=== PATIENT | male | born 1980 | race American Indian/Alaskan Native ===

== ENCOUNTER 2018-06-23 17:25 | Emergency (ER) | payer SELFPAY ==
[2018-06-23] MEDS ORDERED: TYLENOL ONE (17:54)
[2018-06-23] MEDS ORDERED: NACL 0.9% 500 ML 500 ML IV ONE (19:00)
[2018-06-23] MEDS ORDERED: TYLENOL PO ONE (19:15)
[2018-06-23 19:38] LABS: Basophils # (Auto) 0.1 K/mm3 (0.0-0.1); Basophils % (Auto) 0.5 % (0.0-1.8); Eosinophils % (Auto) 0.1 % (0.0-4.3); Hematocrit 37.5 % (35.5-45.6); Hemoglobin 12.7 gm/dl (11.8-15.2); Lymphocytes # (Auto) 1.5 K/mm3 (1.2-5.4); Lymphocytes % (Auto) 8.5 % (13.4-35.0); Mean Corpuscular HGB Conc 34 % (32-34); Mean Corpuscular Hemoglobin 29 pg (28-32); Mean Corpuscular Volume 85 fl (84-94); Monocytes # (Auto) 1.6 K/mm3 (0.0-0.8); Monocytes % (Auto) 8.7 % (0.0-7.3); Platelet Count 263 K/mm3 (140-440); Red Blood Count 4.42 M/mm3 (3.65-5.03)
[2018-06-23 19:48] LABS: INR 1.1 (0.87-1.13)
[2018-06-23 19:53] LABS: Alanine Aminotransferase 18 units/L (7-56); Albumin 3.9 g/dL (3.9-5); BUN/Creatinine Ratio 13; Blood Urea Nitrogen 14 mg/dL (9-20); Calcium 9.6 mg/dL (8.4-10.2); Hemolysis Index 5
[2018-06-23] MEDS ORDERED: SUBLIMAZE IV ONE (22:02)
[2018-06-23] MEDS ORDERED: ZOFRAN IV ONE (22:02)
[2018-06-23] MEDS ORDERED: NACL 0.9% 1000 ML 1,000 ML ONE (22:30)
--- NOTE | 2018-06-23 22:31 | Emergency Department Report ---
HPI - General Chief Complaint: Fever Time Seen by Provider: 06/23/18 21:53 - HPI HPI: Room 6 The patient is a 38-year-old male presenting with chief complaint of right armpit pain. Patient states approximately 5 days ago he noticed pain and swelling in his right axilla. The patient states the pain is been worsening. Patient was suspected fever, night sweats and chills. Patient denies any drainage. The patient currently states his pain is 0/10 Location: Right axilla Duration: 5 days Quality: Pain Severity: [See above] Modifying factors: [see above] Context: [see above] Mode of transportation: [not driving] ED Past Medical Hx - Past Medical History Previous Medical History?: No - Surgical History Past Surgical History?: No - Family History Family history: no significant - Social History Smoking Status: Never Smoker Substance Use Type: None (denies illicit drug use) - Medications Home Medications: Home Medications Medication Instructions Recorded Confirmed Last Taken Type Ciprofloxacin [Ciprofloxacin ORAL 500 mg PO Q12H #20 ml 06/23/18 Unknown Rx LIQ] HYDROcodone/APAP 5-325 [[place] 1 - 2 each PO Q6HR PRN #14 tablet 06/23/18 Unknown Rx 5/325] Ibuprofen [Motrin 800 MG tab] 800 mg PO Q8HR PRN #20 tablet 06/23/18 Unknown Rx Sulfamethoxazole/Trimethoprim 1 each PO BID #20 tablet 06/23/18 Unknown Rx [Bactrim DS TAB] ED Review of Systems ROS: Stated complaint: INFECTION UNDER ARM Other details as noted in HPI Constitutional: chills, fever Eyes: denies: eye pain ENT: denies: throat pain Respiratory: no symptoms reported Cardiovascular: denies: chest pain Endocrine: no symptoms reported Gastrointestinal: denies: abdominal pain Genitourinary: denies: dysuria Musculoskeletal: denies: back pain Skin: lesions, change in color Neurological: denies: headache Physical Exam - Physical Exam Vital Signs: Vital Signs 06/23/18 06/23/18 06/23/18 17:43 19:17 21:09 Temperature 102.8 F H 99.2 F Pulse Rate 126 H 98 H Respiratory 18 18 14 Rate Blood Pressure 148/90 Blood Pressure 112/71 [Left] O2 Sat by Pulse 95 96 Oximetry Physical Exam: GENERAL: The patient is well-developed well-nourished male lying on stretcher not appearing to be in acute distress. [] HEENT: Normocephalic. Atraumatic. Extraocular motions are intact. Patient has moist mucous membranes. NECK: Supple. Trachea midline CHEST/LUNGS: There is no respiratory distress noted. HEART/CARDIOVASCULAR: Regular. There is no tachycardia. SKIN: There to regions of induration and fluctuance in the right axilla with overlying erythema/cellulitis NEURO: The patient is awake, alert, and oriented. The patient is cooperative. The patient has normal speech MUSCULOSKELETAL: There is no evidence of acute injury. ED Course Vital Signs 06/23/18 06/23/18 06/23/18 17:43 19:17 21:09 Temperature 102.8 F H 99.2 F Pulse Rate 126 H 98 H Respiratory 18 18 14 Rate Blood Pressure 148/90 Blood Pressure 112/71 [Left] O2 Sat by Pulse 95 96 Oximetry - I & D Right Arm Type of Procedure: Simple Site: right axilla Blade Size: 11 I & D Procedure: betadine prep Progress: Site was sterilely prepped and draped. The abscess was anesthetized with lidocaine 1% plain approximately 13 mL's. A 1 cm incision was made and an Carter was inserted to break up loculations. There was no return of pus but only blood. Wound was irrigated and then packed with 1/4 inch iodoform gauze ED Medical Decision Making - Lab Data Result diagrams: 06/23/18 19:04 06/23/18 19:04 Laboratory Tests 06/23/18 06/23/18 06/23/18 19:04 19:04 19:04 WBC 18.2 H RBC 4.42 Hgb 12.7 Hct 37.5 MCV 85 MCH 29 MCHC 34 RDW 15.0 Plt Count 263 Lymph % (Auto) 8.5 L [place] % (Auto) 8.7 H Eos % (Auto) 0.1 Baso % (Auto) 0.5 Lymph # 1.5 [place] # 1.6 H Eos # 0.0 Baso # 0.1 Seg Neutrophils % 82.2 H Seg Neutrophils # 15.0 H PT 14.7 INR 1.10 VBG pH Sodium 135 L Potassium 3.3 L Chloride 97.4 L Carbon Dioxide 23 Anion Gap 18 BUN 14 Creatinine 1.1 Estimated GFR > 60 BUN/Creatinine Ratio 13 Glucose 112 H Lactic Acid Calcium 9.6 Total Bilirubin 0.50 AST 24 ALT 18 Alkaline Phosphatase 67 Total Protein 9.4 H Albumin 3.9 Albumin/Globulin Ratio 0.7 06/23/18 06/23/18 19:04 19:04 WBC RBC Hgb Hct MCV MCH MCHC RDW Plt Count Lymph % (Auto) [place] % (Auto) Eos % (Auto) Baso % (Auto) Lymph # [place] # Eos # Baso # Seg Neutrophils % Seg Neutrophils # PT INR VBG pH 7.464 H Sodium Potassium Chloride Carbon Dioxide Anion Gap BUN Creatinine Estimated GFR BUN/Creatinine Ratio Glucose Lactic Acid 1.10 Calcium Total Bilirubin AST ALT Alkaline Phosphatase Total Protein Albumin Albumin/Globulin Ratio - EKG Data -: EKG Interpreted by Me EKG shows normal: sinus rhythm Rate: tachycardia (125 bpm) - EKG Data When compared to previous EKG there are: previous EKG unavailable - Medical Decision Making I discussed with the patient at length my concern for his presentation with probable abscess right axilla. I explained given his initial tachycardia, leukocytosis and failure of the I&D to release purulent discharge my recommendation is that he be admitted to the hospital for further evaluation and management. Patient states that he cannot afford to be admitted to the hospital. Patient verbalized understanding of increased morbidity and/or mortality should he leave the hospital AGAINST MEDICAL ADVICE. Patient given strong warnings to return to the emergency department should he change his mind but to definitely follow-up in 48 hours for reevaluation in the ED - Differential Diagnosis abscess Critical care attestation.: If time is entered above; I have spent that time in minutes in the direct care of this critically ill patient, excluding procedure time. ED Disposition Clinical Impression: Abscess of right axilla, Cellulitis, Axillary pain Disposition: [id number] LEFT AGAINST MED ADVICE Is pt being admited?: No Does the pt Need Aspirin: No Condition: Undetermined Instructions: Chest Pain (ED), Abscess (ED), Abscess Incision and Drainage (ED) Additional Instructions: Please return to the emergency department in 48 hours for reevaluation. Return to the emergency department immediately should you develop worsening symptoms, fever, inability to tolerate food or liquid or any other concerns. Prescriptions: Ciprofloxacin [Ciprofloxacin ORAL LIQ] 500 mg PO Q12H #20 ml HYDROcodone/APAP 5-325 [[place] 5/325] 1 - 2 each PO Q6HR PRN #14 tablet PRN Reason: Pain Ibuprofen [Motrin 800 MG tab] 800 mg PO Q8HR PRN #20 tablet PRN Reason: Pain, Moderate (4-6) Sulfamethoxazole/Trimethoprim [Bactrim DS TAB] 1 each PO BID #20 tablet Referrals: SHERRY CARDOZA MD [Staff Physician] - [facility] Forms: AMA Form Time of Disposition: 23:22 (patient leaving AMA)
--- NOTE | 2018-06-23 22:33 | XRay Report ---
FINAL REPORT PROCEDURE: XR CHEST ROUTINE 2V TECHNIQUE: PA and lateral chest radiographs were obtained. CPT 74959 HISTORY: possible Sepsis COMPARISON: No prior studies are available for comparison. FINDINGS: Heart: Normal. Mediastinum/Vessels: Normal. Lungs/Pleural space: Normal. Bony thorax: No acute osseous abnormality. Other: IMPRESSION: Normal examination.
[2018-06-23] MEDS ORDERED: NACL 0.9% 500 ML IR ONE (22:38)
[2018-06-23] MEDS ORDERED: XYLOCAINE 1% 20 mL ONE (22:42)
[2018-06-23] MEDS ORDERED: XYLOCAINE 1% 20 mL INFILTRATI ONE (23:06)
[2018-06-23] MEDS ORDERED: NACL 0.9% IR ONE (23:06)
[2018-06-23] MEDS ORDERED: NACL 0.9% 1000 ML 1,000 ML IV ONE (23:06)
[2018-06-23] MEDS ORDERED: ROCEPHIN/NS 1 GM/50 ML 1 GM/50 ML BAG IV ONE (23:14)
[2018-06-23 23:45] VITALS: BP 124/69
== END 2018-06-24 01:16 | disposition left against medical advice (07) ==
LOC: ED 17:25
DX: L02.411 Cutaneous abscess of right axilla (principal); L03.111 Cellulitis of right axilla; Z91.09 Other allergy status, other than to drugs and biological substances
CPT/HCPCS: 10060; 36415; 71046; 80053; 82140; 82805; 85025; 85610; 87040; 87086; 96365; 96375; 99284; J0696; J2405; J3010; J7030

== ENCOUNTER 2018-06-24 10:20 | Inpatient (IN) | payer SELFPAY ==
[2018-06-24] MEDS ORDERED: NACL 0.9% 500 ML 500 ML IV ONE (11:05)
[2018-06-24] MEDS ORDERED: CLEOCIN 600 MG/50 mL 600 MG/50 ML BAG IV ONE (11:23)
[2018-06-24] MEDS ORDERED: NACL 0.9% 1000 ML IV ONE (11:23)
[2018-06-24] MEDS ORDERED: TYLENOL PO ONE (11:25)
[2018-06-24] MEDS ORDERED: ZOFRAN IV ONE (11:30)
[2018-06-24] MEDS ORDERED: MORPHINE IV ONE (11:30)
[2018-06-24] MEDS ORDERED: TORADOL IV ONE (11:30)
[2018-06-24 11:31] LABS: Basophils # (Auto) 0.1 K/mm3 (0.0-0.1); Basophils % (Auto) 0.5 % (0.0-1.8); Eosinophils % (Auto) 0.1 % (0.0-4.3); Hematocrit 38.6 % (35.5-45.6); Hemoglobin 12.6 gm/dl (11.8-15.2); Lymphocytes # (Auto) 2.1 K/mm3 (1.2-5.4); Lymphocytes % (Auto) 12.9 % (13.4-35.0); Mean Corpuscular HGB Conc 33 % (32-34); Mean Corpuscular Hemoglobin 28 pg (28-32); Mean Corpuscular Volume 87 fl (84-94); Monocytes # (Auto) 1.6 K/mm3 (0.0-0.8); Platelet Count 254 K/mm3 (140-440); Red Blood Count 4.47 M/mm3 (3.65-5.03); Red Cell Distribution Width 14.9 % (13.2-15.2)
[2018-06-24] MEDS ORDERED: BOOSTRIX IM ONE (11:31)
--- NOTE | 2018-06-24 11:35 | XRay Report ---
AP CHEST: HISTORY: Possible sepsis AP view of the chest demonstrates a normal mediastinal and cardiac contour with clear lungs and normal bony and soft tissue structures. IMPRESSION: Unremarkable AP chest.
[2018-06-24 11:41] LABS: INR 1.02 (0.87-1.13)
[2018-06-24 11:48] LABS: Alanine Aminotransferase 14 units/L (7-56); Albumin 3.9 g/dL (3.9-5); BUN/Creatinine Ratio 10; Blood Urea Nitrogen 12 mg/dL (9-20); Calcium 9.7 mg/dL (8.4-10.2); Hemolysis Index 7
--- NOTE | 2018-06-24 11:57 | Emergency Department Report ---
ED Fever HPI - General Chief Complaint: Fever Stated Complaint: INFECTION FOLLOW UP Time Seen by Provider: 06/24/18 11:20 Source: patient Exam Limitations: no limitations - History of Present Illness Initial Comments: 38-year-old male with no significant past medical history presents to the hospital complaining of persistent right axillary infection and fever. Patient has had a progressively worsening right axilla infection with swelling, redness , and pain the last 2 weeks with intermittent fever. He presented to the ER yesterday and I and D was attempted by Dr. Hand. Only blood was obtained without really drainage. Patient received IV Ancef and admission was recommended. Patient declined and was discharged from [facility]. Patient did not yet fill the medication and returns today with complaints of fever of 101 and complaint of chills and continued right axilla pain. Patient states he has not received a tetanus in the last tenderness. No trauma or insect bite reported. Dr. Hand recommended admission and patient signed out AMA ED Review of Systems ROS: Stated complaint: INFECTION FOLLOW UP Other details as noted in HPI Comment: All other systems reviewed and negative ED Past Medical Hx - Past Medical History Previous Medical History?: No - Surgical History Past Surgical History?: No - Social History Smoking Status: Never Smoker Substance Use Type: None - Medications Home Medications: Home Medications Medication Instructions Recorded Confirmed Last Taken Type Ciprofloxacin [Ciprofloxacin ORAL 500 mg PO Q12H #20 ml 06/23/18 06/24/18 Unknown Rx LIQ] HYDROcodone/APAP 5-325 [[place] 1 - 2 each PO Q6HR PRN #14 tablet 06/23/18 Unknown Rx 5/325] Ibuprofen [Motrin 800 MG tab] 800 mg PO Q8HR PRN #20 tablet 06/23/18 06/24/18 Unknown Rx Sulfamethoxazole/Trimethoprim 1 each PO BID #20 tablet 06/23/18 06/24/18 Unknown Rx [Bactrim DS TAB] ED Physical Exam - General Limitations: No Limitations - Other Other exam information: General: No limitations, patient is alert in no acute distress Head exam: Atraumatic, normocephalic Eyes exam: Normal appearance ENT: Moist mucous membrane, normal oropharynx Neck exam: Normal inspection, full range of motion, no meningismus nontender Respiratory exam: Clear to auscultation bilateral, no wheezes, rales, crackles Cardiovascular: Tachycardic regular rhythm Abdomen: Soft, nondistended, and nontender, with normal bowel sounds, no rebound, or guarding Extremity: Right axilla with significant induration, tenderness, and erythema. Recent I&D site with iodoform gauze packing Back: Normal Inspection, full range of motion, no tenderness Neurologic: Alert, oriented x3, cranial nerves intact, no motor or sensory deficit Psychiatric: normal affect, normal mood Skin: Warm, dry, intact ED Course Vital Signs 06/24/18 06/24/18 06/24/18 10:58 11:05 11:40 Temperature 101.8 F H Pulse Rate 111 H Respiratory 20 Rate Blood Pressure 113/68 O2 Sat by Pulse 96 95 Oximetry 06/24/18 06/24/18 06/24/18 11:46 12:01 12:18 Temperature Pulse Rate Respiratory Rate Blood Pressure 119/66 O2 Sat by Pulse 90 21 L 66 L Oximetry 06/24/18 06/24/18 06/24/18 12:30 12:46 13:11 Temperature Pulse Rate Respiratory Rate Blood Pressure 110/62 110/62 119/66 O2 Sat by Pulse 89 95 94 Oximetry 06/24/18 06/24/18 06/24/18 13:16 13:30 13:46 Temperature Pulse Rate Respiratory Rate Blood Pressure 119/66 98/51 98/51 O2 Sat by Pulse 91 92 97 Oximetry 06/24/18 06/24/18 06/24/18 14:00 15:24 15:30 Temperature Pulse Rate 79 80 Respiratory 13 18 Rate Blood Pressure 99/48 99/48 91/42 O2 Sat by Pulse 98 97 Oximetry 06/24/18 06/24/18 06/24/18 15:46 16:00 16:04 Temperature 98.2 F Pulse Rate 85 82 Respiratory 12 16 Rate Blood Pressure 91/42 97/39 O2 Sat by Pulse 97 98 Oximetry - Consultations Consultation #1: 06/24/18 16:07 Dr clements general surgery consulted to treat abscess ED Medical Decision Making - Lab Data Result diagrams: 06/24/18 11:07 06/24/18 11:07 Lab Results 06/24/18 06/24/18 06/24/18 Range/Units 11:07 11:07 11:07 WBC 16.4 H (4.5-11.0) K/mm3 RBC 4.47 (3.65-5.03) M/mm3 Hgb 12.6 (11.8-15.2) gm/dl Hct 38.6 (35.5-45.6) % MCV 87 (84-94) fl MCH 28 (28-32) pg MCHC 33 (32-34) % RDW 14.9 (13.2-15.2) % Plt Count 254 (140-440) K/mm3 Lymph % (Auto) 12.9 L (13.4-35.0) % [place] % (Auto) 10.0 H (0.0-7.3) % Eos % (Auto) 0.1 (0.0-4.3) % Baso % (Auto) 0.5 (0.0-1.8) % Lymph # 2.1 (1.2-5.4) K/mm3 [place] # 1.6 H (0.0-0.8) K/mm3 Eos # 0.0 (0.0-0.4) K/mm3 Baso # 0.1 (0.0-0.1) K/mm3 Seg Neutrophils % 76.5 H (40.0-70.0) % Seg Neutrophils # 12.6 H (1.8-7.7) K/mm3 PT 13.9 (12.2-14.9) Sec. INR 1.02 (0.87-1.13) VBG pH (7.320-7.420) Sodium 140 (137-145) mmol/L Potassium 4.2 D (3.6-5.0) mmol/L Chloride 100.4 (98-107) mmol/L Carbon Dioxide 26 (22-30) mmol/L Anion Gap 18 mmol/L BUN 12 (9-20) mg/dL Creatinine 1.2 (0.8-1.5) mg/dL Estimated GFR > 60 ml/min BUN/Creatinine Ratio 10 % Glucose 101 H (75-100) mg/dL Lactic Acid (0.7-2.0) mmol/L Calcium 9.7 (8.4-10.2) mg/dL Total Bilirubin 0.50 (0.1-1.2) mg/dL AST 22 (5-40) units/L ALT 14 (7-56) units/L Alkaline Phosphatase 61 (35-129) units/L Total Protein 9.2 H (6.3-8.2) g/dL Albumin 3.9 (3.9-5) g/dL Albumin/Globulin Ratio 0.7 % 06/24/18 06/24/18 Range/Units 11:07 11:07 WBC (4.5-11.0) K/mm3 RBC (3.65-5.03) M/mm3 Hgb (11.8-15.2) gm/dl Hct (35.5-45.6) % MCV (84-94) fl MCH (28-32) pg MCHC (32-34) % RDW (13.2-15.2) % Plt Count (140-440) K/mm3 Lymph % (Auto) (13.4-35.0) % [place] % (Auto) (0.0-7.3) % Eos % (Auto) (0.0-4.3) % Baso % (Auto) (0.0-1.8) % Lymph # (1.2-5.4) K/mm3 [place] # (0.0-0.8) K/mm3 Eos # (0.0-0.4) K/mm3 Baso # (0.0-0.1) K/mm3 Seg Neutrophils % (40.0-70.0) % Seg Neutrophils # (1.8-7.7) K/mm3 PT (12.2-14.9) Sec. INR (0.87-1.13) VBG pH 7.319 L (7.320-7.420) Sodium (137-145) mmol/L Potassium (3.6-5.0) mmol/L Chloride (98-107) mmol/L Carbon Dioxide (22-30) mmol/L Anion Gap mmol/L BUN (9-20) mg/dL Creatinine (0.8-1.5) mg/dL Estimated GFR ml/min BUN/Creatinine Ratio % Glucose (75-100) mg/dL Lactic Acid 3.40 H* (0.7-2.0) mmol/L Calcium (8.4-10.2) mg/dL Total Bilirubin (0.1-1.2) mg/dL AST (5-40) units/L ALT (7-56) units/L Alkaline Phosphatase (35-129) units/L Total Protein (6.3-8.2) g/dL Albumin (3.9-5) g/dL Albumin/Globulin Ratio % - Radiology Data Radiology results: report reviewed AP CHEST: HISTORY: Possible sepsis AP view of the chest demonstrates a normal mediastinal and cardiac contour with clear lungs and normal bony and soft tissue structures. IMPRESSION: Unremarkable AP chest. - Medical Decision Making Right axilla infection with possible sepsis Patient rules in for sepsis criteria including elevated lactic acid compared to yesterday Patient had blood cultures repeated (were performed yesterday as well) Treated with 30 mL/kg of normal saline, Tylenol, Toradol, tetanus, morphine/ Zofran for pain, and IV clindamycin Hospitalist informed for admission surgery consulted vitals improving - Differential Diagnosis cellulitis, abscess, sepsis Critical Care Time: No Critical care attestation.: If time is entered above; I have spent that time in minutes in the direct care of this critically ill patient, excluding procedure time. ED Disposition Clinical Impression: Cellulitis of right axilla, Sepsis, Abscess of right axilla Disposition: OP ADMIT IP TO THIS HOSP Is pt being admited?: Yes Condition: Stable Time of Disposition: 12:00 (Dr Waller/hosp)
--- NOTE | 2018-06-24 15:21 | Cat Scan Report ---
CT UPPER EXTREMITY RIGHT WITH CONTRAST HISTORY: Right axilla infection possible abscess TECHNIQUE: Helical CT following IV contrast. Sagittal and coronal reformatted images. Findings: A fluid collection measuring up to 6.6 x 4.9 cm is identified in the right axillary subcutaneous tissues which is consistent with an abscess. The muscular and bony structures are unremarkable. No joint pathology is appreciated. IMPRESSION: Right axillary subcutaneous abscess.
--- NOTE | 2018-06-24 18:39 | Consultation ---
History of Present Illness Consult date: 06/24/18 Chief complaint: right arm swelling - History of present illness History of present illness: 38-year-old male with no past medical history presented to the emergency room with complaints of right upper arm and axillary pain. This started 1 week prior to presentation and was associated with a lump in his axilla. He states that this area became more swollen and tender. He has never had any symptoms like this before. He presented to the emergency room yesterday with similar complaints and an incision and drainage was attempted however no purulent fluid was drained. He was to return to the emergency room for a wound check. He also states he's been having fevers of greater than 100.3. He has a decreased appetite and doesn't feel generally well. He denies chest pain, shortness of breath, nausea, vomiting, abdominal pain, constipation, diarrhea. Past History Past Medical History: No medical history Past Surgical History: Other (incision and drainage of upper arm) Social history: no significant social history Family history: no significant family history Medications and Allergies Allergies Allergy/AdvReac Type Severity Reaction Status Date / Time No Known Allergies Allergy Unverified 06/23/18 17:48 Home Medications Medication Instructions Recorded Confirmed Last Taken Type Ciprofloxacin [Ciprofloxacin ORAL 500 mg PO Q12H #20 ml 06/23/18 06/24/18 Unknown Rx LIQ] HYDROcodone/APAP 5-325 [[place] 1 - 2 each PO Q6HR PRN #14 tablet 06/23/18 Unknown Rx 5/325] Ibuprofen [Motrin 800 MG tab] 800 mg PO Q8HR PRN #20 tablet 06/23/18 06/24/18 Unknown Rx Sulfamethoxazole/Trimethoprim 1 each PO BID #20 tablet 06/23/18 06/24/18 Unknown Rx [Bactrim DS TAB] Review of Systems All systems: negative (10 point review of systems was performed and negative for that listed in HPI) Exam Vital Signs Temp Pulse BP Pulse Ox 101.8 F H 111 H 113/68 96 06/24/18 10:58 06/24/18 10:58 06/24/18 10:58 06/24/18 10:58 Narrative exam: Gen.: Awake, alert, oriented 3. No apparent distress CV: S1, S2 present Respiratory: No audible wheezes Extremities: Right axillary swelling, fluctuance, induration, tenderness to palpation. There is surrounding cellulitis of the upper medial arm. There is a dressing in place in the right upper arm with serosanguineous drainage. Results - Labs 06/24/18 11:07 06/24/18 11:07 Abnormal lab results 06/24/18 06/24/18 06/24/18 Range/Units 11:07 11:07 11:07 WBC 16.4 H (4.5-11.0) K/mm3 Lymph % (Auto) 12.9 L (13.4-35.0) % [place] % (Auto) 10.0 H (0.0-7.3) % [place] # 1.6 H (0.0-0.8) K/mm3 Seg Neutrophils % 76.5 H (40.0-70.0) % Seg Neutrophils # 12.6 H (1.8-7.7) K/mm3 VBG pH (7.320-7.420) Glucose 101 H (75-100) mg/dL Lactic Acid 3.40 H* (0.7-2.0) mmol/L Total Protein 9.2 H (6.3-8.2) g/dL 06/24/18 Range/Units 11:07 WBC (4.5-11.0) K/mm3 Lymph % (Auto) (13.4-35.0) % [place] % (Auto) (0.0-7.3) % [place] # (0.0-0.8) K/mm3 Seg Neutrophils % (40.0-70.0) % Seg Neutrophils # (1.8-7.7) K/mm3 VBG pH 7.319 L (7.320-7.420) Glucose (75-100) mg/dL Lactic Acid (0.7-2.0) mmol/L Total Protein (6.3-8.2) g/dL Diabetes panel 06/24/18 Range/Units 11:07 Sodium 140 (137-145) mmol/L Potassium 4.2 D (3.6-5.0) mmol/L Chloride 100.4 (98-107) mmol/L Carbon Dioxide 26 (22-30) mmol/L BUN 12 (9-20) mg/dL Creatinine 1.2 (0.8-1.5) mg/dL Glucose 101 H (75-100) mg/dL Calcium 9.7 (8.4-10.2) mg/dL AST 22 (5-40) units/L ALT 14 (7-56) units/L Alkaline Phosphatase 61 (35-129) units/L Total Protein 9.2 H (6.3-8.2) g/dL Albumin 3.9 (3.9-5) g/dL Calcium panel 06/24/18 Range/Units 11:07 Calcium 9.7 (8.4-10.2) mg/dL Albumin 3.9 (3.9-5) g/dL Pituitary panel 06/24/18 Range/Units 11:07 Sodium 140 (137-145) mmol/L Potassium 4.2 D (3.6-5.0) mmol/L Chloride 100.4 (98-107) mmol/L Carbon Dioxide 26 (22-30) mmol/L BUN 12 (9-20) mg/dL Creatinine 1.2 (0.8-1.5) mg/dL Glucose 101 H (75-100) mg/dL Calcium 9.7 (8.4-10.2) mg/dL Adrenal panel 06/24/18 Range/Units 11:07 Sodium 140 (137-145) mmol/L Potassium 4.2 D (3.6-5.0) mmol/L Chloride 100.4 (98-107) mmol/L Carbon Dioxide 26 (22-30) mmol/L BUN 12 (9-20) mg/dL Creatinine 1.2 (0.8-1.5) mg/dL Glucose 101 H (75-100) mg/dL Calcium 9.7 (8.4-10.2) mg/dL Total Bilirubin 0.50 (0.1-1.2) mg/dL AST 22 (5-40) units/L ALT 14 (7-56) units/L Alkaline Phosphatase 61 (35-129) units/L Total Protein 9.2 H (6.3-8.2) g/dL Albumin 3.9 (3.9-5) g/dL - Imaging Additional studies: CT scan of the right upper extremity Assessment and Plan 38 yo M with right axillary abscess, sepsis Plan: 1. Regular diet, NPO p MN 2. IVF 3. IV abx 4. prn pain control 5. plan for OR in am for I&D of abscess, all risks and benefits of surgery explained and consent obtained. Will obtain cultures in the operating room Thank you, please call with questions or concerns.
[2018-06-24 19:22] LABS: Bilirubin,Urine NEG (Negative); Blood,Urine MOD (Negative); Color,Urine Yellow (Yellow); Mucus,Urine FEW /HPF; Protein,Urine <15 mg/dL mg/dL (Negative)
--- NOTE | 2018-06-24 19:30 | History and Physical Report ---
History of Present Illness Chief complaint: My arm hurts History of present illness: 38 YO Male with Obesity presents to ED for evaluation. Pt states that he has experienced pain in his right armpit over the past 2 weeks with worsening symptoms over the past 4 days. Pt seen and evaluated in ED on 06/23/18 but left AMA. Pt returns to ED for reevaluation. Pt acknowledges fever to 101 as well as persistent right arm pain, progressively worsening right armpit swelling and redness. Pt seen and evaluated in ED and found to have Right Axillary Cellulitis complicated by Abscess and Sepsis. Surgery consult requested in ED. Pt seen and evaluated by surgical service and subsequently admitted for surgical intervention. Past History Past Medical History: other (obesity) Past Surgical History: No surgical history, Other (reviewed) Social history: single. denies: smoking, alcohol abuse, prescription drug abuse Family history: hypertension Medications and Allergies Allergies Allergy/AdvReac Type Severity Reaction Status Date / Time No Known Allergies Allergy Unverified 06/23/18 17:48 Home Medications Medication Instructions Recorded Confirmed Last Taken Type Ciprofloxacin [Ciprofloxacin ORAL 500 mg PO Q12H #20 ml 06/23/18 06/24/18 Unknown Rx LIQ] HYDROcodone/APAP 5-325 [Dafter 1 - 2 each PO Q6HR PRN #14 tablet 06/23/18 Unknown Rx 5/325] Ibuprofen [Motrin 800 MG tab] 800 mg PO Q8HR PRN #20 tablet 06/23/18 06/24/18 Unknown Rx Sulfamethoxazole/Trimethoprim 1 each PO BID #20 tablet 06/23/18 06/24/18 Unknown Rx [Bactrim DS TAB] Review of Systems Constitutional: fever, no weight loss, no weight gain, no chills, no sweats, no fatigue, no weakness Ears, nose, mouth and throat: no ear pain, no ear discharge, no tinnitis, no decreased hearing, no nasal congestion Cardiovascular: no chest pain, no orthopnea, no palpitations, no rapid/ irregular heart beat, no edema, no syncope, no dyspnea on exertion, no paroxysmal nocturnal dyspnea, no claudication, no phlebitis Respiratory: no cough, no cough with sputum, no excessive sputum, no shortness of breath, no dyspnea on exertion Gastrointestinal: no abdominal pain, no nausea, no vomiting, no diarrhea, no constipation, no change in bowel habits, no hematemesis Genitourinary Male: no hematuria, no flank pain, no discharge, no urinary frequency, no urinary hesitancy Rectal: no pain, no incontinence, no bleeding Musculoskeletal: other (right axillary pain), no neck stiffness, no neck pain, no shooting arm pain, no arm numbness/tingling, no low back pain Integumentary: redness (right axilla), no rash, no pruritis, no sores, no wounds Neurological: no transient paralysis, no paralysis, no weakness, no parathesias , no numbness, no tingling Psychiatric: no anxiety, no memory loss, no change in sleep habits, no sleep disturbances, no insomnia, no hypersomnia, no change in appetite Endocrine: no cold intolerance, no heat intolerance, no polyphagia, no excessive thirst, no polydipsia, no polyuria, no nocturia, no excessive sweating Hematologic/Lymphatic: no easy bruising, no easy bleeding, no lymphadenopathy, no lymphedema Allergic/Immunologic: no urticaria, no allergic rhinitis, no wheezing, no persistent infections, no anaphylaxis, no angioedema Exam - Constitutional Vitals: Temp Pulse Resp BP Pulse Ox 98.2 F 74 19 94/50 99 06/24/18 16:04 06/24/18 17:46 06/24/18 17:46 06/24/18 17:46 06/24/18 17:46 General appearance: Present: mild distress, obese - EENT Eyes: Present: PERRL ENT: hearing intact, clear oral mucosa - Neck Neck: Present: supple, normal ROM - Respiratory Respiratory effort: normal Respiratory: bilateral: CTA - Cardiovascular Heart Sounds: Present: S1 & S2. Absent: rub, click - Extremities Extremities: pulses symmetrical, No edema Extremity abnormal: edema, erythema, other (Right axilla) Peripheral Pulses: within normal limits - Abdominal General gastrointestinal: Present: soft, non-tender, non-distended, normal bowel sounds Male genitourinary: Present: normal - Integumentary Integumentary: Present: clear, warm, dry - Musculoskeletal Musculoskeletal: gait normal, strength equal bilaterally - Psychiatric Psychiatric: appropriate mood/affect, intact judgment & insight - Neurologic Neurologic: CNII-XII intact, moves all extremities Results - Labs CBC & Chem 7: 06/24/18 11:07 06/24/18 11:07 Labs: Abnormal lab results 06/24/18 06/24/18 06/24/18 Range/Units 11:07 11:07 11:07 WBC 16.4 H (4.5-11.0) K/mm3 Lymph % (Auto) 12.9 L (13.4-35.0) % [place] % (Auto) 10.0 H (0.0-7.3) % [place] # 1.6 H (0.0-0.8) K/mm3 Seg Neutrophils % 76.5 H (40.0-70.0) % Seg Neutrophils # 12.6 H (1.8-7.7) K/mm3 VBG pH (7.320-7.420) Glucose 101 H (75-100) mg/dL Lactic Acid 3.40 H* (0.7-2.0) mmol/L Total Protein 9.2 H (6.3-8.2) g/dL Ur Specific [place] (1.003-1.030) 06/24/18 06/24/18 Range/Units 11:07 18:45 WBC (4.5-11.0) K/mm3 Lymph % (Auto) (13.4-35.0) % [place] % (Auto) (0.0-7.3) % [place] # (0.0-0.8) K/mm3 Seg Neutrophils % (40.0-70.0) % Seg Neutrophils # (1.8-7.7) K/mm3 VBG pH 7.319 L (7.320-7.420) Glucose (75-100) mg/dL Lactic Acid (0.7-2.0) mmol/L Total Protein (6.3-8.2) g/dL Ur Specific [place] 1.060 H (1.003-1.030) Assessment and Plan - Patient Problems (1) Sepsis Current Visit: Yes Status: Acute Qualifiers: Sepsis type: sepsis due to unspecified organism Qualified Code(s): A41.9 - Sepsis, unspecified organism Plan to address problem: IV antibiotic therapy, IVF resuscitation, monitor uop q shift, blood cultures, serial lactic acid, CBC, CMP, urinalysis, (2) Abscess of right axilla Current Visit: Yes Status: Acute Plan to address problem: Surgery consulted in ED, Pending surgical intervention. (3) Cellulitis of right axilla Current Visit: Yes Status: Acute Plan to address problem: IV antibiotic therapy, supportive car, pain control (4) DVT prophylaxis Current Visit: Yes Status: Acute Plan to address problem: SCD to BLE while in bed.
[2018-06-24] MEDS ORDERED: PROVENTIL IH PRN (19:31)
[2018-06-24] MEDS ORDERED: SODIUM CHLORIDE FLUSH SYRINGE 10 ML IV PRN (19:31)
[2018-06-24] MEDS ORDERED: ZOFRAN IV PRN (19:31)
[2018-06-24] MEDS ORDERED: PERCOCET 5/325 PO PRN (19:31)
[2018-06-24] MEDS: SODIUM CHLORIDE FLUSH SYRINGE 10 ML IV SCH (22:49)
[2018-06-24] MEDS: ceFAZolin 2 GM in NACL 0.9% 100 ML IV SCH (23:48)
[2018-06-25] MEDS: ceFAZolin 2 GM in NACL 0.9% 100 ML IV SCH ×3 (06:03→21:42)
[2018-06-25] MEDS ORDERED: TYLENOL PR ONE (06:45)
[2018-06-25] MEDS: SODIUM CHLORIDE FLUSH SYRINGE 10 ML IV SCH ×2 (10:13→21:44)
--- NOTE | 2018-06-25 11:47 | Anesthesia Day of Surgery ---
Anesthesia Day of Surgery - Day of Surgery Patient Examined: Yes Patient H&P Reviewed: Yes Patient is NPO: Yes
--- NOTE | 2018-06-25 11:48 | Anesthesia Consultation ---
Anesthesia Consult and Med Hx Date of service: 06/25/18 - Airway Anesthetic Teeth Evaluation: Good ROM Head & Neck: Adequate Mental/Hyoid Distance: Adequate Mallampati Class: Class II Intubation Access Assessment: Probably Good - Pulmonary Exam CTA: Yes - Cardiac Exam Cardiac Exam: RRR - Pre-Operative Health Status ASA Pre-Surgery Classification: ASA2, Emergency Proposed Anesthetic Plan: General (denies GERD, febrile, denies HTN, denies smoking or illicit drug use) - Pulmonary Hx Asthma: No COPD: No Hx Pneumonia: No - Cardiovascular System Hx Coronary Artery Disease: No Hx Heart Attack/AMI: No Hx Angina: No Hx Percutaneous Transluminal Coronary Angioplasty (PTCA): No Hx Pacemaker: No Hx Internal Defibrillator: No Hx Valvular Heart Disease: No Hx Heart Murmur: No Hx Peripheral Vascular Disease: No - Central Nervous System Hx Psychiatric Problems: No - Endocrine Hx Renal Disease: No Hx End Stage Renal Disease: No - Hematic Hx Anemia: No - Other Systems Hx Cancer: No
[2018-06-25] MEDS ORDERED: ZOFRAN IV PRN (11:56)
[2018-06-25] MEDS ORDERED: DILAUDID IV PRN (11:56)
[2018-06-25] MEDS ORDERED: TORADOL IV PRN (11:56)
[2018-06-25] MEDS ORDERED: DEMEROL IV PRN (11:56)
[2018-06-25] MEDS ORDERED: VERSED IV NR (12:00)
[2018-06-25] MEDS ORDERED: VERSED PO NR (12:07)
[2018-06-25] MEDS ORDERED: LACTATED RINGERS 1,000 ML IV SCH (12:30)
[2018-06-25] MEDS ORDERED: XYLOCAINE MPF 2% ONE (13:01)
[2018-06-25] MEDS ORDERED: DILAUDID ONE ×2 (13:01→13:02)
[2018-06-25] MEDS ORDERED: DIPRIVAN 10 MG/ML IV ONE (13:02)
[2018-06-25] MEDS ORDERED: TORADOL ONE (13:18)
[2018-06-25] MEDS ORDERED: XYLOCAINE 1% 20 mL ONE (13:40)
[2018-06-25] MEDS ORDERED: ZOFRAN ONE (13:45)
[2018-06-25] MEDS ORDERED: NACL 0.9% IR ONE (13:51)
[2018-06-25] MEDS ORDERED: NEO SYNEPHRINE/NS Syringe(OR USE) IV ONE (14:02)
[2018-06-25] MEDS ORDERED: XYLOCAINE 1% 20 mL INFILTRATI ONE ×2 (14:02)
--- NOTE | 2018-06-25 14:19 | Operative Report ---
Operative Report Operative Report: Date of surgery: 06/25/18 Preoperative diagnosis: Right axillary abscess, sepsis Postoperative diagnosis: Same as above Procedure: Incision and drainage of right axillary abscess Surgeon: Yolande Mooney DO Anesthesia: Gen./local Findings: 200 mL of pus in right axilla superficial tissues EBL: 25 mL Specimen: Wound cultures Complications: None Disposition: STable to PACU HPI an indication: Patient is a 38-year-old male with no past medical history presented to the emergency room with complaints of right axillary pain and swelling. A CT scan was performed and he was found to have a large subcutaneous abscess of his right axilla. All risks, benefits, alternatives to incision and drainage of the abscess were discussed with the patient consent obtained. Procedure in detail: The patient was identified in the preoperative area, taken back to the operating room, placed on the operating table in supine position. After anesthesia was induced, the right axillary hairs were clipped and the skin was prepped and draped in the usual sterile fashion. A timeout was performed. Using ultrasound guidance a large abscess cavity with fluid was identified over the area of fluctuance. Using a 15 blade, a 4 cm incision was made in the skin overlying the fluctuance in the area of the abscess. There was immediate drainage of copious amount of purulent material. The wound was probed with a gloved finger in order to break up all loculations and more purulent material was expressed. Wound cultures were obtained. The entire abscess cavity measured 7 cm in length by 5 cm in width by 2 cm in depth. There was generalized oozing from the underlying muscle. Hemostasis was achieved using a combination of electrocautery and pressure. The abscess cavity was irrigated with a copious amount of saline solution and packed with saline moistened Kerlix. The skin was anesthetized with 1% lidocaine. A fluff gauze was placed over this area, covered with 2 ABDs pads, and secured with Elastoplast tape. The end of the case, all sponge, instrument, sharp counts were correct 2. The patient was awoken from anesthesia and taken to PACU in stable condition.
--- NOTE | 2018-06-25 15:24 | Post Anesthesia Evaluation ---
- Post Anesthesia Evaluation Patient Participated: Yes Airway Patent: Yes Stable Respiratory Function: Yes Nausea/Vomiting: No Temp > 96.8F: Yes Pain Manageable: Yes Adequeate Hydration: Yes Anesthesia Complications: No
[2018-06-25] MEDS: LACTATED RINGERS 1,000 ML IV SCH (17:42)
--- NOTE | 2018-06-25 17:59 | Progress Note ---
Assessment and Plan Assessment and plan: --Right axilla abscess; Continue current antibiotics, supportive care Surgery evaluation and recommendations noted and appreciated Incision and drainage today --Sepsis; secondary to axilla abscess Follow cultures, antibiotics and supportive care --Febrile illness; MAXIMUM TEMPERATURE 102f Antipyretics, antibiotics, supportive care --DVT prophylaxis; SCDs Closely monitor the patient and adjust the management as needed Plan of care reviewed with the patient and his nurse Possible discharge in 1-2 days if stable Also discussed with the surgeon Dr. Mooney History Interval history: Patient was admitted with right axillary abscess; On IV antibiotics, evaluated by surgery Planning I&D today Patient is febrile with MAXIMUM TEMPERATURE of 102F No new complaints, vital signs stable Hospitalist Physical - Constitutional Vitals: Temp Pulse Resp BP Pulse Ox 99.0 F 77 21 94/42 96 06/25/18 14:16 06/25/18 15:15 06/25/18 15:15 06/25/18 15:15 06/25/18 15:15 General appearance: Present: no acute distress, well-nourished, obese - EENT Eyes: Present: PERRL, EOM intact - Neck Neck: Present: supple, normal ROM - Respiratory Respiratory effort: normal Respiratory: bilateral: diminished, negative: rales, rhonchi, wheezing - Cardiovascular Rhythm: regular Heart Sounds: Present: S1 & S2 - Extremities Extremities: abnormal (right axilla abscess) - Abdominal General gastrointestinal: soft, non-tender, non-distended, normal bowel sounds - Integumentary Integumentary: Present: clear, warm - Psychiatric Psychiatric: appropriate mood/affect, cooperative - Neurologic Neurologic: CNII-XII intact, moves all extremities Results - Labs CBC & Chem 7: 06/24/18 11:07 06/24/18 11:07 Labs: Laboratory Last Values WBC 16.4 K/mm3 (4.5-11.0) H 06/24/18 11:07 RBC 4.47 M/mm3 (3.65-5.03) 06/24/18 11:07 Hgb 12.6 gm/dl (11.8-15.2) 06/24/18 11:07 Hct 38.6 % (35.5-45.6) 06/24/18 11:07 MCV 87 fl (84-94) 06/24/18 11:07 MCH 28 pg (28-32) 06/24/18 11:07 MCHC 33 % (32-34) 06/24/18 11:07 RDW 14.9 % (13.2-15.2) 06/24/18 11:07 Plt Count 254 K/mm3 (140-440) 06/24/18 11:07 Lymph % (Auto) 12.9 % (13.4-35.0) L 06/24/18 11:07 [place] % (Auto) 10.0 % (0.0-7.3) H 06/24/18 11:07 Eos % (Auto) 0.1 % (0.0-4.3) 06/24/18 11:07 Baso % (Auto) 0.5 % (0.0-1.8) 06/24/18 11:07 Lymph # 2.1 K/mm3 (1.2-5.4) 06/24/18 11:07 [place] # 1.6 K/mm3 (0.0-0.8) H 06/24/18 11:07 Eos # 0.0 K/mm3 (0.0-0.4) 06/24/18 11:07 Baso # 0.1 K/mm3 (0.0-0.1) 06/24/18 11:07 Seg Neutrophils % 76.5 % (40.0-70.0) H 06/24/18 11:07 Seg Neutrophils # 12.6 K/mm3 (1.8-7.7) H 06/24/18 11:07 PT 13.9 Sec. (12.2-14.9) 06/24/18 11:07 INR 1.02 (0.87-1.13) 06/24/18 11:07 VBG pH 7.319 (7.320-7.420) L 06/24/18 11:07 Sodium 140 mmol/L (137-145) 06/24/18 11:07 Potassium 4.2 mmol/L (3.6-5.0) D 06/24/18 11:07 Chloride 100.4 mmol/L (98-107) 06/24/18 11:07 Carbon Dioxide 26 mmol/L (22-30) 06/24/18 11:07 Anion Gap 18 mmol/L 06/24/18 11:07 BUN 12 mg/dL (9-20) 06/24/18 11:07 Creatinine 1.2 mg/dL (0.8-1.5) 06/24/18 11:07 Estimated GFR > 60 ml/min 06/24/18 11:07 BUN/Creatinine Ratio 10 % 06/24/18 11:07 Glucose 101 mg/dL (75-100) H 06/24/18 11:07 Lactic Acid 0.80 mmol/L (0.7-2.0) 06/24/18 15:18 Calcium 9.7 mg/dL (8.4-10.2) 06/24/18 11:07 Total Bilirubin 0.50 mg/dL (0.1-1.2) 06/24/18 11:07 AST 22 units/L (5-40) 06/24/18 11:07 ALT 14 units/L (7-56) 06/24/18 11:07 Alkaline Phosphatase 61 units/L (35-129) 06/24/18 11:07 Total Protein 9.2 g/dL (6.3-8.2) H 06/24/18 11:07 Albumin 3.9 g/dL (3.9-5) 06/24/18 11:07 Albumin/Globulin Ratio 0.7 % 06/24/18 11:07 Urine Color Yellow (Yellow) 06/24/18 18:45 Urine Turbidity Clear (Clear) 06/24/18 18:45 Urine pH 6.0 (5.0-7.0) 06/24/18 18:45 Ur Specific [place] 1.060 (1.003-1.030) H 06/24/18 18:45 Urine Protein <15 mg/dl mg/dL (Negative) 06/24/18 18:45 Urine Glucose (UA) Neg mg/dL (Negative) 06/24/18 18:45 Urine Ketones Neg mg/dL (Negative) 06/24/18 18:45 Urine Blood Mod (Negative) 06/24/18 18:45 Urine Nitrite Neg (Negative) 06/24/18 18:45 Urine Bilirubin Neg (Negative) 06/24/18 18:45 Urine Urobilinogen 4.0 mg/dL (<2.0) 06/24/18 18:45 Ur Leukocyte Esterase Neg (Negative) 06/24/18 18:45 Urine WBC (Auto) 2.0 /HPF (0.0-6.0) 06/24/18 18:45 Urine RBC (Auto) 9.0 /HPF (0.0-6.0) 06/24/18 18:45 U Epithel Cells (Auto) < 1.0 /HPF (0-13.0) 06/24/18 18:45 Urine Mucus Few /HPF 06/24/18 18:45
[2018-06-25] MEDS: TYLENOL PO PRN (19:53)
[2018-06-26] MEDS: ceFAZolin 2 GM in NACL 0.9% 100 ML IV SCH ×3 (05:54→22:06)
[2018-06-26] MEDS: TYLENOL PO PRN (06:03)
[2018-06-26] MEDS: LACTATED RINGERS 1,000 ML IV SCH (06:03)
[2018-06-26 06:45] LABS: Basophils % (Auto) 0.2 % (0.0-1.8); Eosinophils % (Auto) 0.2 % (0.0-4.3); Hematocrit 31.5 % (35.5-45.6); Hemoglobin 10.6 gm/dl (11.8-15.2); Lymphocytes # (Auto) 1.4 K/mm3 (1.2-5.4); Lymphocytes % (Auto) 12.1 % (13.4-35.0); Mean Corpuscular HGB Conc 34 % (32-34); Mean Corpuscular Hemoglobin 29 pg (28-32); Mean Corpuscular Volume 85 fl (84-94); Monocytes % (Auto) 8.5 % (0.0-7.3); Platelet Count 228 K/mm3 (140-440); Red Blood Count 3.71 M/mm3 (3.65-5.03); Red Cell Distribution Width 14.7 % (13.2-15.2)
[2018-06-26 07:01] LABS: BUN/Creatinine Ratio 8; Blood Urea Nitrogen 7 mg/dL (9-20); Calcium 8.9 mg/dL (8.4-10.2); Hemolysis Index 2
[2018-06-26] MEDS: SODIUM CHLORIDE FLUSH SYRINGE 10 ML IV SCH ×2 (09:11→22:02)
[2018-06-26] MEDS: PERCOCET 5/325 PO PRN ×2 (09:35→17:43)
--- NOTE | 2018-06-26 09:42 | Progress Note ---
Assessment and Plan Assessment and plan: --Right axilla abscess;s/p incision and drainage Continue current antibiotics, supportive care Surgery following, continue wound care --Sepsis; secondary to axilla abscess Follow cultures, antibiotics and supportive care --Febrile illness upon admission; afebrile today --DVT prophylaxis; SCDs Closely monitor the patient and adjust the management as needed Plan of care reviewed with the patient and his nurse Possible discharge in 1-2 days if stable History Interval history: Patient seen and examined medical records reviewed Patient feels better,s/p I&D of right axillary abscess Mild drainage in the dressing Patient feels better, No new complaints, afebrile Vital signs reviewed Hospitalist Physical - Constitutional Vitals: Temp Pulse Resp BP Pulse Ox 98.0 F 104 H 16 104/50 94 06/26/18 04:44 06/26/18 04:44 06/26/18 04:44 06/26/18 04:44 06/26/18 07:25 General appearance: Present: no acute distress, well-nourished, obese - EENT Eyes: Present: PERRL, EOM intact - Neck Neck: Present: supple, normal ROM - Respiratory Respiratory effort: normal Respiratory: negative: rales, rhonchi, wheezing - Cardiovascular Rhythm: regular Heart Sounds: Present: S1 & S2 - Extremities Extremities: no ischemia, No edema, abnormal (dressing in the axilla soaking the discharge) - Abdominal General gastrointestinal: soft, non-tender, non-distended, normal bowel sounds - Integumentary Integumentary: Present: clear, warm - Psychiatric Psychiatric: appropriate mood/affect, cooperative - Neurologic Neurologic: CNII-XII intact, moves all extremities Results - Labs CBC & Chem 7: 06/27/18 05:06 06/27/18 05:06 Labs: Laboratory Last Values WBC 11.9 K/mm3 (4.5-11.0) H 06/26/18 05:55 RBC 3.71 M/mm3 (3.65-5.03) 06/26/18 05:55 Hgb 10.6 gm/dl (11.8-15.2) L 06/26/18 05:55 Hct 31.5 % (35.5-45.6) L D 06/26/18 05:55 MCV 85 fl (84-94) 06/26/18 05:55 MCH 29 pg (28-32) 06/26/18 05:55 MCHC 34 % (32-34) 06/26/18 05:55 RDW 14.7 % (13.2-15.2) 06/26/18 05:55 Plt Count 228 K/mm3 (140-440) 06/26/18 05:55 Lymph % (Auto) 12.1 % (13.4-35.0) L 06/26/18 05:55 [place] % (Auto) 8.5 % (0.0-7.3) H 06/26/18 05:55 Eos % (Auto) 0.2 % (0.0-4.3) 06/26/18 05:55 Baso % (Auto) 0.2 % (0.0-1.8) 06/26/18 05:55 Lymph # 1.4 K/mm3 (1.2-5.4) 06/26/18 05:55 [place] # 1.0 K/mm3 (0.0-0.8) H 06/26/18 05:55 Eos # 0.0 K/mm3 (0.0-0.4) 06/26/18 05:55 Baso # 0.0 K/mm3 (0.0-0.1) 06/26/18 05:55 Seg Neutrophils % 79.0 % (40.0-70.0) H 06/26/18 05:55 Seg Neutrophils # 9.4 K/mm3 (1.8-7.7) H 06/26/18 05:55 PT 13.9 Sec. (12.2-14.9) 06/24/18 11:07 INR 1.02 (0.87-1.13) 06/24/18 11:07 VBG pH 7.319 (7.320-7.420) L 06/24/18 11:07 Sodium 139 mmol/L (137-145) 06/26/18 05:55 Potassium 3.6 mmol/L (3.6-5.0) 06/26/18 05:55 Chloride 101.8 mmol/L (98-107) 06/26/18 05:55 Carbon Dioxide 26 mmol/L (22-30) 06/26/18 05:55 Anion Gap 15 mmol/L 06/26/18 05:55 BUN 7 mg/dL (9-20) L 06/26/18 05:55 Creatinine 0.9 mg/dL (0.8-1.5) 06/26/18 05:55 Estimated GFR > 60 ml/min 06/26/18 05:55 BUN/Creatinine Ratio 8 % 06/26/18 05:55 Glucose 97 mg/dL (75-100) 06/26/18 05:55 Lactic Acid 0.80 mmol/L (0.7-2.0) 06/24/18 15:18 Calcium 8.9 mg/dL (8.4-10.2) 06/26/18 05:55 Total Bilirubin 0.50 mg/dL (0.1-1.2) 06/24/18 11:07 AST 22 units/L (5-40) 06/24/18 11:07 ALT 14 units/L (7-56) 06/24/18 11:07 Alkaline Phosphatase 61 units/L (35-129) 06/24/18 11:07 Total Protein 9.2 g/dL (6.3-8.2) H 06/24/18 11:07 Albumin 3.9 g/dL (3.9-5) 06/24/18 11:07 Albumin/Globulin Ratio 0.7 % 06/24/18 11:07 Urine Color Yellow (Yellow) 06/24/18 18:45 Urine Turbidity Clear (Clear) 06/24/18 18:45 Urine pH 6.0 (5.0-7.0) 06/24/18 18:45 Ur Specific [place] 1.060 (1.003-1.030) H 06/24/18 18:45 Urine Protein <15 mg/dl mg/dL (Negative) 06/24/18 18:45 Urine Glucose (UA) Neg mg/dL (Negative) 06/24/18 18:45 Urine Ketones Neg mg/dL (Negative) 06/24/18 18:45 Urine Blood Mod (Negative) 06/24/18 18:45 Urine Nitrite Neg (Negative) 06/24/18 18:45 Urine Bilirubin Neg (Negative) 06/24/18 18:45 Urine Urobilinogen 4.0 mg/dL (<2.0) 06/24/18 18:45 Ur Leukocyte Esterase Neg (Negative) 06/24/18 18:45 Urine WBC (Auto) 2.0 /HPF (0.0-6.0) 06/24/18 18:45 Urine RBC (Auto) 9.0 /HPF (0.0-6.0) 06/24/18 18:45 U Epithel Cells (Auto) < 1.0 /HPF (0-13.0) 06/24/18 18:45 Urine Mucus Few /HPF 06/24/18 18:45
[2018-06-26] MEDS ORDERED: DILAUDID IV STA (12:42)
--- NOTE | 2018-06-26 14:25 | Progress Note ---
Assessment and Plan 38 yo M s/p Incision and drainage of right axillary abscess, POD 1 1. await final cultures 2. ID consult pending 3. on IV abx 4. patient did not tolerate dressing change at the bedside due to pain, despite being premedicated with 1 mg IV dilaudid. The initial dressing change will be performed in the OR tomorrow. NPO p MN tonight 5. Pt has been given paperwork for [facility] Thank you, please call with questions or concerns. Subjective Date of service: 06/26/18 Narrative: Pt seen and examined. c/o that he has a poor appetite. He has been afebrile since surgery yesterday. Objective Vital Signs - 12hr 06/26/18 06/26/18 06/26/18 04:44 07:25 12:35 Temperature 98.0 F 99.4 F Pulse Rate 104 H 79 Respiratory 16 20 Rate Blood Pressure 104/50 114/63 O2 Sat by Pulse 94 94 94 Oximetry - General physical appearance Narrative Exam: Gen: AAOx3. NAD CV: s1, S2+ Resp: even and unlabored Ext: R axillary dressing with serosanguenous drainage. Outer dressing removed and 5 cm of packing removed and cut off. Remaining packing left in place due to pain. [place] wound skin/tissues very indurated and inflamed but no fluctuance. Wound covered with 4x4 gauze and abd pad. - Labs 06/26/18 05:55 06/26/18 05:55 Diabetes panel 06/26/18 Range/Units 05:55 Sodium 139 (137-145) mmol/L Potassium 3.6 (3.6-5.0) mmol/L Chloride 101.8 (98-107) mmol/L Carbon Dioxide 26 (22-30) mmol/L BUN 7 L (9-20) mg/dL Creatinine 0.9 (0.8-1.5) mg/dL Glucose 97 (75-100) mg/dL Calcium 8.9 (8.4-10.2) mg/dL Calcium panel 06/26/18 Range/Units 05:55 Calcium 8.9 (8.4-10.2) mg/dL Pituitary panel 06/26/18 Range/Units 05:55 Sodium 139 (137-145) mmol/L Potassium 3.6 (3.6-5.0) mmol/L Chloride 101.8 (98-107) mmol/L Carbon Dioxide 26 (22-30) mmol/L BUN 7 L (9-20) mg/dL Creatinine 0.9 (0.8-1.5) mg/dL Glucose 97 (75-100) mg/dL Calcium 8.9 (8.4-10.2) mg/dL Adrenal panel 06/26/18 Range/Units 05:55 Sodium 139 (137-145) mmol/L Potassium 3.6 (3.6-5.0) mmol/L Chloride 101.8 (98-107) mmol/L Carbon Dioxide 26 (22-30) mmol/L BUN 7 L (9-20) mg/dL Creatinine 0.9 (0.8-1.5) mg/dL Glucose 97 (75-100) mg/dL Calcium 8.9 (8.4-10.2) mg/dL
[2018-06-27] MEDS ORDERED: VANCOMYCIN 1,750 MG in NACL 0.9% 500 ML 500 ML IV SCH (04:00)
[2018-06-27 06:08] LABS: Basophils # (Auto) 0.1 K/mm3 (0.0-0.1); Basophils % (Auto) 0.5 % (0.0-1.8); Eosinophils # (Auto) 0.1 K/mm3 (0.0-0.4); Eosinophils % (Auto) 0.6 % (0.0-4.3); Hematocrit 34.4 % (35.5-45.6); Hemoglobin 11.3 gm/dl (11.8-15.2); Lymphocytes # (Auto) 1.7 K/mm3 (1.2-5.4); Lymphocytes % (Auto) 15.5 % (13.4-35.0); Mean Corpuscular HGB Conc 33 % (32-34); Mean Corpuscular Hemoglobin 29 pg (28-32); Mean Corpuscular Volume 87 fl (84-94); Platelet Count 253 K/mm3 (140-440); Red Blood Count 3.95 M/mm3 (3.65-5.03); Red Cell Distribution Width 14.7 % (13.2-15.2)
[2018-06-27 06:32] LABS: BUN/Creatinine Ratio 7; Blood Urea Nitrogen 6 mg/dL (9-20); Hemolysis Index 31
[2018-06-27] MEDS: ceFAZolin 2 GM in NACL 0.9% 100 ML IV SCH (08:19)
[2018-06-27] MEDS: SODIUM CHLORIDE FLUSH SYRINGE 10 ML IV SCH ×2 (10:07→21:47)
[2018-06-27] MEDS ORDERED: LACTATED RINGERS 1,000 ML IV SCH (13:02)
[2018-06-27] MEDS ORDERED: HYDROGEN PEROXIDE ONE (13:07)
[2018-06-27] MEDS ORDERED: MARCAINE 0.5% INFILTRATI ONE ×2 (13:07→13:08)
[2018-06-27] MEDS ORDERED: VERSED IV ONE (13:27)
[2018-06-27] MEDS ORDERED: DIPRIVAN 10 MG/ML IV ONE (13:28)
--- NOTE | 2018-06-27 13:44 | Operative Report ---
Operative Report Operative Report: Date of surgery: 06/27/18 Preoperative diagnosis: Right axillary wound Postoperative diagnosis: Same as above Procedure: Exploration of right axillary wound, wash out, dressing change Surgeon: Beatriz Mooney DO Anesthesia: MAC Findings: Clean wound cavity without additional pus, no additional collections EBL: Less than 5 mL Specimen: None Complications: None Disposition: Stable to PACU HPI and indication: 38 yo M who underwent incision and drainage of right axillary abscess on 06/25/18 at which time 200 mL of purulent material were expressed. A dressing change was attempted at the bedside, however despite premedication with IV pain medication, the patient could not tolerate a dressing change. Therefore, he was consented for a wound washout and dressing change in the operating room. Procedure in detail: Patient was identified in the preoperative area, taken back to operating room. The right axillary dressing was removed and the prieto- axillary hair clipped. A timeout was then performed. The packing was removed which consisted of 1 piece of Kerlix. The wound base was pink/red and healthy. There was no additional drainage of purulent material. The wound was probed with a gloved finger and there were no additional collections. Using the ultrasound, the area around the wound was inspected for any additional collections and only severe edema was seen in the tissues. This corresponded to the areas of induration around the wound. The wound was irrigated with saline and packed gently with one piece of gauze packing, just enough to tent open the skin. A 4 x 4 fluff dressing, ABDs were placed over the wound and secured with tape. At the end of the case, all sponge, instrument, sharp counts were correct 2. Patient was awoken from anesthesia and taken to PACU in stable condition.
[2018-06-27] MEDS: DILAUDID IV PRN ×2 (14:00→14:15)
--- NOTE | 2018-06-27 14:03 | Anesthesia Day of Surgery ---
Anesthesia Day of Surgery - Day of Surgery Patient Examined: Yes Patient H&P Reviewed: Yes Patient is NPO: Yes
[2018-06-27] MEDS ORDERED: VANCOMYCIN/NS 1 GM/250 ML 1 GM/250 ML BAG IV SCH (16:00)
[2018-06-27] MEDS ORDERED: VANCOMYCIN 2,000 MG in NACL 0.9% 500 ML 500 ML IV ONE (16:00)
--- NOTE | 2018-06-27 16:20 | Progress Note ---
Assessment and Plan Assessment and plan: --Right axilla abscess;s/p incision and drainage Surgical exploration of right axillary wound and dressing changed by surgery today Cultures positive for staph aureus, add vancomycin, Contact isolation ID consult , supportive care Surgery, wound care following --Sepsis; secondary to axilla abscess Cultures staph aureus. --Febrile illness upon admission; afebrile today --DVT prophylaxis; SCDs Closely monitor the patient and adjust the management as needed Plan of care reviewed with the patient and his nurse Possible discharge in 1-2 days if stable History Interval history: Patient seen and examined medical records reviewed Patient feels slightly better, Patient had surgical exploration of right axilla wound and dressing change by surgery. Wound cultures positive for staph aureus, contact isolation until MRSA is ruled out add Vanco, ID consult Hospitalist Physical - Constitutional Vitals: Temp Pulse Resp BP Pulse Ox 97.6 F 78 2 L 129/72 98 06/27/18 13:42 06/27/18 14:30 06/27/18 14:30 06/27/18 14:30 06/27/18 14:30 General appearance: Present: no acute distress, well-nourished, obese - EENT Eyes: Present: PERRL, EOM intact - Neck Neck: Present: supple, normal ROM - Respiratory Respiratory effort: normal Respiratory: bilateral: diminished, negative: rales, rhonchi, wheezing - Cardiovascular Rhythm: regular Heart Sounds: Present: S1 & S2 - Extremities Extremities: no ischemia, No edema - Abdominal General gastrointestinal: soft, non-tender, non-distended, normal bowel sounds - Integumentary Integumentary: Present: clear, warm - Psychiatric Psychiatric: appropriate mood/affect, cooperative - Neurologic Neurologic: CNII-XII intact, moves all extremities Results - Labs CBC & Chem 7: 06/27/18 05:06 06/27/18 05:06 Labs: Laboratory Last Values WBC 10.9 K/mm3 (4.5-11.0) 06/27/18 05:06 RBC 3.95 M/mm3 (3.65-5.03) 06/27/18 05:06 Hgb 11.3 gm/dl (11.8-15.2) L 06/27/18 05:06 Hct 34.4 % (35.5-45.6) L 06/27/18 05:06 MCV 87 fl (84-94) 06/27/18 05:06 MCH 29 pg (28-32) 06/27/18 05:06 MCHC 33 % (32-34) 06/27/18 05:06 RDW 14.7 % (13.2-15.2) 06/27/18 05:06 Plt Count 253 K/mm3 (140-440) 06/27/18 05:06 Lymph % (Auto) 15.5 % (13.4-35.0) 06/27/18 05:06 [place] % (Auto) 9.0 % (0.0-7.3) H 06/27/18 05:06 Eos % (Auto) 0.6 % (0.0-4.3) 06/27/18 05:06 Baso % (Auto) 0.5 % (0.0-1.8) 06/27/18 05:06 Lymph # 1.7 K/mm3 (1.2-5.4) 06/27/18 05:06 [place] # 1.0 K/mm3 (0.0-0.8) H 06/27/18 05:06 Eos # 0.1 K/mm3 (0.0-0.4) 06/27/18 05:06 Baso # 0.1 K/mm3 (0.0-0.1) 06/27/18 05:06 Seg Neutrophils % 74.4 % (40.0-70.0) H 06/27/18 05:06 Seg Neutrophils # 8.1 K/mm3 (1.8-7.7) H 06/27/18 05:06 PT 13.9 Sec. (12.2-14.9) 06/24/18 11:07 INR 1.02 (0.87-1.13) 06/24/18 11:07 VBG pH 7.319 (7.320-7.420) L 06/24/18 11:07 Sodium 138 mmol/L (137-145) 06/27/18 05:06 Potassium 4.0 mmol/L (3.6-5.0) 06/27/18 05:06 Chloride 101.5 mmol/L (98-107) 06/27/18 05:06 Carbon Dioxide 26 mmol/L (22-30) 06/27/18 05:06 Anion Gap 15 mmol/L 06/27/18 05:06 BUN 6 mg/dL (9-20) L 06/27/18 05:06 Creatinine 0.9 mg/dL (0.8-1.5) 06/27/18 05:06 Estimated GFR > 60 ml/min 06/27/18 05:06 BUN/Creatinine Ratio 7 % 06/27/18 05:06 Glucose 92 mg/dL (75-100) 06/27/18 05:06 Lactic Acid 0.80 mmol/L (0.7-2.0) 06/24/18 15:18 Calcium 9.0 mg/dL (8.4-10.2) 06/27/18 05:06 Total Bilirubin 0.50 mg/dL (0.1-1.2) 06/24/18 11:07 AST 22 units/L (5-40) 06/24/18 11:07 ALT 14 units/L (7-56) 06/24/18 11:07 Alkaline Phosphatase 61 units/L (35-129) 06/24/18 11:07 Total Protein 9.2 g/dL (6.3-8.2) H 06/24/18 11:07 Albumin 3.9 g/dL (3.9-5) 06/24/18 11:07 Albumin/Globulin Ratio 0.7 % 06/24/18 11:07 Urine Color Yellow (Yellow) 06/24/18 18:45 Urine Turbidity Clear (Clear) 06/24/18 18:45 Urine pH 6.0 (5.0-7.0) 06/24/18 18:45 Ur Specific [place] 1.060 (1.003-1.030) H 06/24/18 18:45 Urine Protein <15 mg/dl mg/dL (Negative) 06/24/18 18:45 Urine Glucose (UA) Neg mg/dL (Negative) 06/24/18 18:45 Urine Ketones Neg mg/dL (Negative) 06/24/18 18:45 Urine Blood Mod (Negative) 06/24/18 18:45 Urine Nitrite Neg (Negative) 06/24/18 18:45 Urine Bilirubin Neg (Negative) 06/24/18 18:45 Urine Urobilinogen 4.0 mg/dL (<2.0) 06/24/18 18:45 Ur Leukocyte Esterase Neg (Negative) 06/24/18 18:45 Urine WBC (Auto) 2.0 /HPF (0.0-6.0) 06/24/18 18:45 Urine RBC (Auto) 9.0 /HPF (0.0-6.0) 06/24/18 18:45 U Epithel Cells (Auto) < 1.0 /HPF (0-13.0) 06/24/18 18:45 Urine Mucus Few /HPF 06/24/18 18:45
--- NOTE | 2018-06-27 16:32 | Consultation ---
History of Present Illness - Reason for Consult Consult date: 06/27/18 Right axillary abscess Requesting physician: PINKY GAO - History of Present Illness Patient is a 38-year-old male with obesity who presented to the emergency room on 06/24/2018 with complaints of right armpit pain. He had initially presented to the emergency room per day prior but left AMA, he was given PO abx but never filled the prescriptions. Upon evaluation, he was found to have right axillary cellulitis with an associated abscess causing sepsis. He reports progressive right axillary swelling over the last 2-3 weeks or so, does not recall the inciting event. Denies any similar history in the past. Had been having fever with chills for about 4-5 days prior to admission. He was seen by general surgery and on 06/25/2018 he underwent an I&D with 200 mL of purulence expressed from the right axilla. He underwent another exploration of the right axillary wound and washout on 06/27/2018 in the OR. He has been on IV cefazolin since admission, IV vancomycin was added today after culture results grew Staph aureus. Currently, he feels much better. No more fevers, chills. Pain in the right arm pit is also improving. He denies any alcohol, smoking or drug use. Denies shaving of his armpits. Works in security. Review of Systems: General: fevers +, with chills. no rigors HEENT: no new visual disturbance Respiratory: No cough, sputum, hemoptysis or shortness of breath Cardiovascular: No chest pain, syncope Gastrointestinal: No nausea, vomiting or diarrhea Genitourinary: No dysuria or hematuria Musculoskeletal: No new or worsening neck pain or back pain Neurologic: No headaches, seizures Hematologic: No easy bruising or bleeding Endocrine: No night sweats or acute weight loss Skin: negative for rash, jaundice Psychiatric: No suicidal or homicidal ideation Past History Past Medical History: other (obesity) Past Surgical History: No surgical history, Other (reviewed) Social history: single. denies: smoking, alcohol abuse, prescription drug abuse Family history: hypertension Medications and Allergies Allergies Allergy/AdvReac Type Severity Reaction Status Date / Time ALMOND MILK AdvReac Swelling Uncoded 06/27/18 13:12 Home Medications Medication Instructions Recorded Confirmed Last Taken Type Ciprofloxacin [Ciprofloxacin ORAL 500 mg PO Q12H #20 ml 06/23/18 06/24/18 Unknown Rx LIQ] HYDROcodone/APAP 5-325 [[place] 1 - 2 each PO Q6HR PRN #14 tablet 06/23/18 Unknown Rx 5/325] Ibuprofen [Motrin 800 MG tab] 800 mg PO Q8HR PRN #20 tablet 06/23/18 06/24/18 Unknown Rx Sulfamethoxazole/Trimethoprim 1 each PO BID #20 tablet 06/23/18 06/24/18 Unknown Rx [Bactrim DS TAB] Active Meds: Active Medications Acetaminophen (Tylenol) 650 mg PO Q4H PRN PRN Reason: Pain MILD(1-3)/Fever >100.5/CARDENAS Last Admin: 06/26/18 06:03 Dose: 650 mg Albuterol (Proventil) 2.5 mg IH Q4HRT PRN PRN Reason: Shortness Of Breath Hydromorphone HCl (Dilaudid) 0.5 mg IV Q10MIN PRN PRN Reason: Pain , Severe (7-10) Last Admin: 06/27/18 14:15 Dose: 0.5 mg Cefazolin Sodium 2 gm/ Sodium (Chloride) 100 mls @ 200 mls/hr IV Q8HR YO Last Admin: 06/27/18 08:19 Dose: 200 mls/hr Lactated Ringer's (Lactated Ringers) 1,000 mls @ 75 mls/hr IV DIRECT YO Stop: 06/27/18 23:59 Vancomycin HCl 2,000 mg/ (Sodium Chloride) 540 mls @ 250 mls/hr IV ONCE ONE Stop: 06/27/18 18:09 Vancomycin HCl 1,750 mg/ (Sodium Chloride) 535 mls @ 333.333 mls/hr IV Q12H YO Ondansetron HCl (Zofran) 4 mg IV Q8H PRN PRN Reason: Nausea And Vomiting Oxycodone/Acetaminophen (Percocet 5/325) 1 tab PO Q4H PRN PRN Reason: Pain, Moderate (4-6) Last Admin: 06/26/18 17:43 Dose: 1 tab Sodium Chloride (Sodium Chloride Flush Syringe 10 Ml) 10 ml IV BID YO Last Admin: 06/27/18 10:07 Dose: 10 ml Sodium Chloride (Sodium Chloride Flush Syringe 10 Ml) 10 ml IV PRN PRN PRN Reason: LINE FLUSH Physical Examination - Physical Exam Narrative exam: Physical Exam: Constitutional: Alert, cooperative. No acute distress. Obese. Head, Ears, Nose: Normocephalic, atraumatic. External ears, nose normal Eyes: Conjunctivae/corneas clear. No icterus. No ptosis. Neck: Supple, no meningeal signs Oral: dentition fair, no thrush Cardiovascular: S1, S2 normal. Respiratory: Good air entry, clear to auscultation bilaterally GI: Soft, non-tender; bowel sounds normal. No peritoneal signs Musculoskeletal: No pedal edema, no cyanosis. Right axillary surgical wound with packing, surrounding induration, tenderness and warmth, no expressible purulence. Skin: No rash or abscess Hem/Lymphatic: No palpable cervical or supraclavicular nodes. No lymphangitis Psych: Mood ok. Affect normal Neurological: Awake, alert, oriented. No gross abnormality - Constitutional Vitals: Vital Signs Temp Pulse Resp BP Pulse Ox 97.6 F 78 2 L 129/72 98 06/27/18 13:42 06/27/18 14:30 06/27/18 14:30 06/27/18 14:30 06/27/18 14:30 Temperature -Last 24 Hours Temperature 97.6 F Temperature 99.7 F Temperature 99.7 F Temperature 98.0 F Temperature 98.7 F Temperature 99.2 F Results - Labs CBC & Chem 7: 06/27/18 05:06 06/27/18 05:06 Labs: Cultures: 06/24/2018 blood culture: No growth 06/25/2018 right axillary culture: Staph aureus, susceptibilities pending Abnormal lab results 06/27/18 06/27/18 Range/Units 05:06 05:06 Hgb 11.3 L (11.8-15.2) gm/dl Hct 34.4 L (35.5-45.6) % [place] % (Auto) 9.0 H (0.0-7.3) % [place] # 1.0 H (0.0-0.8) K/mm3 Seg Neutrophils % 74.4 H (40.0-70.0) % Seg Neutrophils # 8.1 H (1.8-7.7) K/mm3 BUN 6 L (9-20) mg/dL Assessment and Plan 38-year-old male with obesity admitted with sepsis secondary to right axillary abscess and cellulitis: 1) Sepsis present on admission secondary to right axillary abscess and cellulitis: Sepsis has resolved. Status post I&D by general surgery followed by another washout in the OR. Cultures growing Staphylococcus aureus, suspect MRSA however susceptibilities are still pending at this time. Recommend empiric IV vancomycin, target trough between 10-20 g per mL. Continue wound care and packing. Recs: Discontinued cefazolin Continue IV vancomycin, target trough between 10 to 20 g per mL Continue wound care and packing Follow-up final susceptibilities on the staph aureus, anticipate discharge on oral antibiotics Advised patient to consider once a week showering with Hibiclens soap OTC Plan discussed with Dr. Gao. MD [facility] C: [phone] O: [phone]
[2018-06-28] MEDS ORDERED: VANCOMYCIN 1,750 MG in NACL 0.9% 500 ML 500 ML IV SCH (04:00)
--- NOTE | 2018-06-28 11:02 | Discharge Summary ---
Providers - Providers Date of Admission: 06/24/18 19:31 Date of discharge: 06/28/18 Attending physician: PINKY GAO 06/24/18 16:06 Consult to Physician [CONS] Urgent Comment: Consulting Provider: DIDI JOHNSON Physician Instructions: Reason For Exam: right axillary abscess 06/27/18 16:17 Consult to Physician [CONS] Routine Comment: Consulting Provider: DRAKE COUCH Physician Instructions: Reason For Exam: Staph Aureus wound cultures Primary care physician: ROUTEMAN Hospitalization Condition: Stable Disposition: DC-01 TO HOME OR SELFCARE Time spent for discharge: 32 min Core Measure Documentation - Palliative Care Palliative Care/ Comfort Measures: Not Applicable - Core Measures Any of the following diagnoses?: none Exam - Constitutional Vitals: Temp Pulse Resp BP Pulse Ox 98.9 F 78 18 127/55 95 06/28/18 05:49 06/28/18 05:49 06/28/18 05:49 06/28/18 05:49 06/28/18 05:49 General appearance: Present: no acute distress, well-nourished, obese - EENT Eyes: Present: PERRL, EOM intact - Neck Neck: Present: supple, normal ROM - Respiratory Respiratory effort: normal Respiratory: negative: rales, rhonchi, wheezing - Cardiovascular Rhythm: regular Heart Sounds: Present: S1 & S2 - Extremities Extremities: no ischemia, No edema, abnormal - Abdominal General gastrointestinal: Present: soft, non-tender - Integumentary Integumentary: Present: clear, warm - Musculoskeletal Musculoskeletal: strength equal bilaterally - Psychiatric Psychiatric: appropriate mood/affect, cooperative - Neurologic Neurologic: CNII-XII intact, moves all extremities Plan Activity: no restrictions Diet: regular Wound: per wound nurse instructions Additional Instructions: Contact isolation/hand washing Follow up with: DIDI JOHNSON DO [Staff Physician] - 7 Days PRIMARY CARE, [Primary Care Provider] - 7 Days Prescriptions: oxyCODONE /ACETAMINOPHEN [Percocet 5/325 mg] 1 tab PO BID PRN #10 tablet PRN Reason: Pain, Moderate (4-6) Sulfamethoxazole/Trimethoprim [Bactrim DS TAB] 1 each PO BID #20 tablet
[2018-06-28] MEDS: PERCOCET 5/325 PO PRN (12:23)
[2018-06-28 17:36] VITALS: BP 116/73
== END 2018-06-28 18:40 | disposition home or self-care (01) | DRG 872 ==
LOC: ED 10:20 → 3A 19:31
PROVIDERS: ADMIT Internal Medicine; ATTEND Internal Medicine
PROC: 0X940ZZ Drainage of Right Axilla, Open Approach (ICD-10-PCS; principal; 2018-06-25)
PROC: 3E10X8Z Irrigation of Skin and Mucous Membranes using Irrigating Substance (ICD-10-PCS; 2018-06-27)
DX: A41.9 Sepsis, unspecified organism (principal); L02.411 Cutaneous abscess of right axilla; L03.111 Cellulitis of right axilla; E66.9 Obesity, unspecified; Z82.49 Family history of ischemic heart disease and other diseases of the circulatory system; Z79.899 Other long term (current) drug therapy
CPT/HCPCS: 36415; 71045; 80048; 80053; 81001; 82140; 82805; 85025; 85610; 87040; 87075; 87076; 87116; 87186; 90471; 90715; 93005; 93010; 94760; 96361; 96365; 96375; J0690; J1170; J1885; J2250; J2270; J2370; J2405; J2704; J3370; J7030; J7040; J7120; Q9967